=== PATIENT | female | born 1935 | race Asian ===

== ENCOUNTER 2018-08-13 19:38 | Inpatient (IN) | payer OTHER, MEDICAID ==
[~2018-08-13] VITALS: Ht 154.9 cm; Wt 55.6 kg
[2018-08-13 21:22] LABS: BASOPHIL % 0.2 % (0-2); PLATELET COUNT 230 x10^3mcL (130-400); RED CELL DISTRIBUTION WIDTH 14.2 % (11.5-14.5)
[2018-08-13 21:27] LABS: CALCIUM 8.5 mg/dL (8.5-10.1); CHLORIDE SERUM 107 mmol/L (98-107); CREATININE SERUM 1.4 mg/dL (0.6-1.0); GLUCOSE SERUM 95 mg/dL (74-106); POTASSIUM SERUM 3.9 mmol/L (3.5-5.1); SODIUM SERUM 141 mmol/L (136-145)
[2018-08-13] MEDS ORDERED: ENALAPRIL MALE2.5 MG PO (21:29)
[2018-08-13 21:41] LABS: ALBUMIN 3.3 g/dL (3.4-5.0); ALKALINE PHOSPHATASE 45 U/L (46-116); ALT/SGPT 16 U/L (14-59); AST/SGOT 23 U/L (15-37); BILIRUBIN TOTAL 0.4 mg/dL (0.20-1.00); TOTAL PROTEIN, SERUM 7.3 g/dL (6.4-8.2)
[2018-08-13 22:01] VITALS: BP 173/50
[2018-08-13 23:40] LABS: microscopic required? NO
[2018-08-13 23:52] LABS: UA SPECIFIC GRAVITY <=1.005 (1.005-1.035); urine erythrocyte NEGATIVE (NEGATIVE)
[2018-08-14] MEDS ORDERED: LYRICA50 M1 PO (00:20)
[2018-08-14 05:55] VITALS: BP 129/50
[2018-08-14 06:19] LABS: CALCIUM 7.8 mg/dL (8.5-10.1); CARBON DIOXIDE 21.2 mmol/L (21-32); CHLORIDE SERUM 110 mmol/L (98-107); CREATININE SERUM 1.4 mg/dL (0.6-1.0); GLUCOSE SERUM 178 mg/dL (74-106); MAGNESIUM 1.9 mg/dL (1.8-2.4); POTASSIUM SERUM 4.1 mmol/L (3.5-5.1); SODIUM SERUM 139 mmol/L (136-145)
[2018-08-14 06:27] LABS: BASOPHIL % 0.3 % (0-2); PLATELET COUNT 193 x10^3mcL (130-400)
[2018-08-14 09:20] VITALS: BP 152/73
[2018-08-14 18:12] VITALS: BP 149/72
[2018-08-14 21:04] VITALS: BP 137/60
[2018-08-15 04:50] VITALS: BP 131/65
[2018-08-15 09:16] VITALS: BP 134/58
[2018-08-15 18:04] VITALS: BP 139/58
[2018-08-15 19:40] LABS: UA SPECIFIC GRAVITY 1.025 (1.005-1.035); microscopic required? YES; urine erythrocyte NEGATIVE (NEGATIVE)
[2018-08-15 20:06] VITALS: BP 157/57
[2018-08-16 05:44] VITALS: BP 147/54
[2018-08-16 06:35] LABS: CALCIUM 7.8 mg/dL (8.5-10.1); CARBON DIOXIDE 18.6 mmol/L (21-32); CHLORIDE SERUM 109 mmol/L (98-107); CREATININE SERUM 1.1 mg/dL (0.6-1.0); GLUCOSE SERUM 147 mg/dL (74-106); MAGNESIUM 1.7 mg/dL (1.8-2.4); POTASSIUM SERUM 3.6 mmol/L (3.5-5.1); SODIUM SERUM 139 mmol/L (136-145)
[2018-08-16 06:53] LABS: BASOPHIL % 0.3 % (0-2); PLATELET COUNT 148 x10^3mcL (130-400); RED CELL DISTRIBUTION WIDTH 14.4 % (11.5-14.5)
[2018-08-16 09:14] VITALS: BP 129/59
[2018-08-16 15:00] VITALS: BP 119/59
[2018-08-16] MEDS ORDERED: ACETAMINOPHEN-H1 TA1 PO (15:18)
[2018-08-16] MEDS ORDERED: HEP5I SC (15:18)
[2018-08-16] MEDS ORDERED: APR25 PO (15:18)
[2018-08-16] MEDS ORDERED: ENALAPRIL MALE2.5 MG PO (15:21)
[2018-08-16] MEDS ORDERED: ROC1I IV (15:21)
[2018-08-16 16:40] VITALS: BP 132/59
[2018-08-16 20:48] VITALS: BP 129/57
[2018-08-17 05:14] VITALS: BP 127/59
[2018-08-17 07:54] VITALS: BP 131/65
[2018-08-17 12:40] VITALS: BP 141/65
[2018-08-17 16:26] VITALS: BP 163/73
[2018-08-17 18:00] VITALS: BP 130/57
== END 2018-08-17 20:20 | DRG 301 ==
LOC: ED 19:38 → MU 21:16
PROVIDERS: Emergency Medicine; Internal Medicine Pulmonary Disease; Neuromusculoskeletal Medicine, Sports Medicine
PROC: 0SRR0JZ Replacement of Right Hip Joint, Femoral Surface with Synthetic Substitute, Open Approach (ICD-10-PCS; principal; 2018-08-14 14:00)
DX: S72.011A Unspecified intracapsular fracture of right femur, initial encounter for closed fracture (principal); J18.9 Pneumonia, unspecified organism; J98.11 Atelectasis; I10 Essential (primary) hypertension; E78.5 Hyperlipidemia, unspecified; W01.0XXA Fall on same level from slipping, tripping and stumbling without subsequent striking against object, initial encounter; Y92.9 Unspecified place or not applicable
CPT/HCPCS: 94150; 97110-GP; 97116-GP; 97530-GP; C1776; J0690; J0696; J1644; J1885; J2175; J2250; J2270; J2405; J3010; J3475; J3490; J7030; J7042; J7120; Q0092

== ENCOUNTER 2019-02-14 13:38 | Inpatient (IN) | payer OTHER, MEDICAID ==
[~2019-02-14] VITALS: Ht 149.9 cm; Wt 56.4 kg
[~2019-02-14 13:38] MED LIST: ACETAMINOPHEN-H1 TA1 PO; APR25 PO; ENALAPRIL MALE2.5 MG PO; HEP5I SC; LYRICA50 M1 PO; ROC1I IV
[2019-02-14 14:31] LABS: BASOPHIL % 0.2 % (0-2); PLATELET COUNT 305 x10^3mcL (130-400)
[2019-02-14 14:37] LABS: RED CELL DISTRIBUTION WIDTH 16.8 % (11.5-14.5)
[2019-02-14 14:39] LABS: CALCIUM 8.3 mg/dL (8.5-10.1); CARBON DIOXIDE 21.1 mmol/L (21-32); CHLORIDE SERUM 103 mmol/L (98-107); GLUCOSE SERUM 97 mg/dL (74-106); POTASSIUM SERUM 3.8 mmol/L (3.5-5.1); SODIUM SERUM 137 mmol/L (136-145)
[2019-02-14 14:50] LABS: ALKALINE PHOSPHATASE 71 U/L (46-116); ALT/SGPT 21 U/L (14-59); AST/SGOT 43 U/L (15-37); BILIRUBIN TOTAL 0.4 mg/dL (0.20-1.00); TOTAL PROTEIN, SERUM 7.5 g/dL (6.4-8.2)
[2019-02-14 14:53] LABS: ALBUMIN 2.9 g/dL (3.4-5.0)
[2019-02-14] MEDS ORDERED: AMPICILLIN500 MG PO (15:18)
[2019-02-14 16:38] LABS: microscopic required? YES; urine erythrocyte 2+ (NEGATIVE)
[2019-02-14 17:33] VITALS: BP 151/62
[2019-02-14 17:37] VITALS: Ht 149.9 cm; Wt 56.4 kg
[2019-02-14 20:59] VITALS: BP 131/56
[2019-02-14 23:59] VITALS: BP 131/56
[2019-02-15 05:03] VITALS: BP 157/82
[2019-02-15 06:50] LABS: ALKALINE PHOSPHATASE 81 U/L (46-116); ALT/SGPT 22 U/L (14-59); AST/SGOT 39 U/L (15-37); BILIRUBIN TOTAL 0.34 mg/dL (0.20-1.00); CALCIUM 7.9 mg/dL (8.5-10.1); CHLORIDE SERUM 102 mmol/L (98-107); GLUCOSE SERUM 105 mg/dL (74-106); PHOSPHOROUS 2.1 mg/dL (2.5-4.9); POTASSIUM SERUM 3.6 mmol/L (3.5-5.1); SODIUM SERUM 136 mmol/L (136-145); TOTAL PROTEIN, SERUM 7.2 g/dL (6.4-8.2)
[2019-02-15 06:57] LABS: ALBUMIN 2.8 g/dL (3.4-5.0)
[2019-02-15 08:48] VITALS: BP 147/61
[2019-02-15 13:02] VITALS: BP 141/54
[2019-02-15 18:54] VITALS: BP 137/59
[2019-02-15 20:38] VITALS: BP 134/54
[2019-02-16 04:58] VITALS: BP 119/62
[2019-02-16 06:18] LABS: BASOPHIL % 0.2 % (0-2); PLATELET COUNT 297 x10^3mcL (130-400)
[2019-02-16 07:04] LABS: RED CELL DISTRIBUTION WIDTH 17.1 % (11.5-14.5)
[2019-02-16 07:06] LABS: ALKALINE PHOSPHATASE 77 U/L (46-116); ALT/SGPT 21 U/L (14-59); AST/SGOT 35 U/L (15-37); BILIRUBIN TOTAL 0.21 mg/dL (0.20-1.00); CALCIUM 7.7 mg/dL (8.5-10.1); CARBON DIOXIDE 23.6 mmol/L (21-32); CHLORIDE SERUM 105 mmol/L (98-107); CREATININE SERUM 0.9 mg/dL (0.6-1.0); GLUCOSE SERUM 84 mg/dL (74-106); PHOSPHOROUS 2.7 mg/dL (2.5-4.9); POTASSIUM SERUM 3.4 mmol/L (3.5-5.1); SODIUM SERUM 139 mmol/L (136-145); TOTAL PROTEIN, SERUM 6.8 g/dL (6.4-8.2)
[2019-02-16 07:07] LABS: ALBUMIN 2.4 g/dL (3.4-5.0)
[2019-02-16 08:40] VITALS: BP 111/62
[2019-02-16 12:30] VITALS: BP 117/56
[2019-02-16 17:51] VITALS: BP 120/50
[2019-02-16 20:12] VITALS: BP 114/58
[2019-02-17] VITALS (8 sets, daily range): BP systolic 112–145; BP diastolic 43–77
[2019-02-17 07:28] LABS: ALKALINE PHOSPHATASE 95 U/L (46-116); ALT/SGPT 22 U/L (14-59); AST/SGOT 31 U/L (15-37); BILIRUBIN TOTAL 0.24 mg/dL (0.20-1.00); CALCIUM 7.9 mg/dL (8.5-10.1); CARBON DIOXIDE 22.3 mmol/L (21-32); CHLORIDE SERUM 102 mmol/L (98-107); CREATININE SERUM 0.9 mg/dL (0.6-1.0); GLUCOSE SERUM 94 mg/dL (74-106); POTASSIUM SERUM 3.8 mmol/L (3.5-5.1); SODIUM SERUM 136 mmol/L (136-145); TOTAL PROTEIN, SERUM 7.8 g/dL (6.4-8.2)
[2019-02-17 07:30] LABS: ALBUMIN 2.8 g/dL (3.4-5.0)
[2019-02-17] MEDS ORDERED: LEVAQUIN750 MG PO (08:40)
[2019-02-17] MEDS ORDERED: ROBL PO (08:41)
[2019-02-18 05:45] VITALS: BP 127/55
[2019-02-18 07:06] LABS: PLATELET COUNT 335 x10^3mcL (130-400)
[2019-02-18 07:13] LABS: ALKALINE PHOSPHATASE 119 U/L (46-116); ALT/SGPT 20 U/L (14-59); AST/SGOT 29 U/L (15-37); BILIRUBIN TOTAL 0.5 mg/dL (0.20-1.00); CALCIUM 7.5 mg/dL (8.5-10.1); CARBON DIOXIDE 21.1 mmol/L (21-32); CHLORIDE SERUM 99 mmol/L (98-107); CREATININE SERUM 1.2 mg/dL (0.6-1.0); GLUCOSE SERUM 101 mg/dL (74-106); SODIUM SERUM 132 mmol/L (136-145); TOTAL PROTEIN, SERUM 7.2 g/dL (6.4-8.2)
[2019-02-18 07:15] LABS: ALBUMIN 2.3 g/dL (3.4-5.0)
[2019-02-18 08:12] LABS: RED CELL DISTRIBUTION WIDTH 17.3 % (11.5-14.5)
[2019-02-18 08:39] VITALS: BP 135/57
[2019-02-18 13:07] LABS: BAND NEUTROPHIL 6 % (0-10); BASOPHIL 0 % (0-2); MONOCYTE 2 % (0-7); SEGMENTED NEUTROPHILS 86 % (37-75)
[2019-02-18 13:08] LABS: PLATELET MORPHOLOGY PLATELETS INCREASED; rbc morphology (normal/abnorm) ABNORMAL (NORMAL)
[2019-02-18 16:39] VITALS: BP 129/53
[2019-02-18 21:22] VITALS: BP 118/55
[2019-02-18 23:30] VITALS: BP 118/55
[2019-02-19] VITALS (10 sets, daily range): BP systolic 83–119; BP diastolic 47–66
[2019-02-19 05:16] LABS: CHLORIDE SERUM 101 mmol/L (98-107); CREATININE SERUM 1.8 mg/dL (0.6-1.0); GLUCOSE SERUM 148 mg/dL (74-106); POTASSIUM SERUM 4.6 mmol/L (3.5-5.1); SODIUM SERUM 133 mmol/L (136-145)
[2019-02-19 05:24] LABS: PLATELET COUNT 331 x10^3mcL (130-400)
[2019-02-19 05:28] LABS: BASOPHIL % 0 % (0-2); RED CELL DISTRIBUTION WIDTH 17.4 % (11.5-14.5)
[2019-02-19 13:06] LABS: UA SPECIFIC GRAVITY >=1.030 (1.005-1.035); microscopic required? YES; urine erythrocyte 2+ (NEGATIVE)
[2019-02-20 03:21] VITALS: BP 108/59
[2019-02-20 05:08] LABS: CARBON DIOXIDE 20.4 mmol/L (21-32); CHLORIDE SERUM 107 mmol/L (98-107); CREATININE SERUM 1.4 mg/dL (0.6-1.0); GLUCOSE SERUM 97 mg/dL (74-106); MAGNESIUM 2.6 mg/dL (1.8-2.4); SODIUM SERUM 138 mmol/L (136-145)
[2019-02-20 05:18] LABS: BASOPHIL % 0 % (0-2); PLATELET COUNT 329 x10^3mcL (130-400); RED CELL DISTRIBUTION WIDTH 17.5 % (11.5-14.5)
[2019-02-20 07:48] VITALS: BP 108/58
[2019-02-20 12:30] VITALS: BP 130/65
[2019-02-20 16:13] VITALS: BP 132/60
[2019-02-20 20:33] VITALS: BP 141/68
[2019-02-21 05:36] VITALS: BP 159/74
[2019-02-21 06:40] VITALS: BP 151/74
[2019-02-21 07:19] LABS: BASOPHIL % 0.1 % (0-2)
[2019-02-21 07:21] LABS: PLATELET COUNT 415 x10^3mcL (130-400); RED CELL DISTRIBUTION WIDTH 17.2 % (11.5-14.5)
[2019-02-21 07:41] LABS: CALCIUM 7.8 mg/dL (8.5-10.1); CARBON DIOXIDE 19.8 mmol/L (21-32); CHLORIDE SERUM 109 mmol/L (98-107); CREATININE SERUM 1.1 mg/dL (0.6-1.0); GLUCOSE SERUM 71 mg/dL (74-106); POTASSIUM SERUM 3.8 mmol/L (3.5-5.1); SODIUM SERUM 140 mmol/L (136-145)
[2019-02-21 10:36] VITALS: BP 157/65
[2019-02-21 14:00] VITALS: BP 152/74
[2019-02-21 18:00] VITALS: BP 148/68
[2019-02-21 20:51] VITALS: BP 137/65
[2019-02-22 05:34] VITALS: BP 124/65
[2019-02-22 07:31] LABS: CALCIUM 8.1 mg/dL (8.5-10.1); CARBON DIOXIDE 19.6 mmol/L (21-32); CHLORIDE SERUM 110 mmol/L (98-107); GLUCOSE SERUM 80 mg/dL (74-106); POTASSIUM SERUM 4.1 mmol/L (3.5-5.1); SODIUM SERUM 140 mmol/L (136-145)
[2019-02-22 08:14] LABS: BASOPHIL % 0.2 % (0-2)
[2019-02-22 08:32] LABS: RED CELL DISTRIBUTION WIDTH 17.5 % (11.5-14.5)
[2019-02-22 08:33] LABS: PLATELET COUNT 466 x10^3mcL (130-400)
[2019-02-22 09:44] VITALS: BP 142/69
[2019-02-22 13:46] VITALS: BP 158/77
[2019-02-22 16:29] VITALS: BP 158/77
[2019-02-22 17:25] VITALS: BP 133/77
[2019-02-22 22:02] VITALS: BP 159/74
[2019-02-23 06:37] VITALS: BP 153/70
[2019-02-23 07:13] LABS: ALKALINE PHOSPHATASE 164 U/L (46-116); ALT/SGPT 17 U/L (14-59); AST/SGOT 23 U/L (15-37); BILIRUBIN TOTAL 0.67 mg/dL (0.20-1.00); CALCIUM 8.8 mg/dL (8.5-10.1); CARBON DIOXIDE 19.8 mmol/L (21-32); CHLORIDE SERUM 105 mmol/L (98-107); GLUCOSE SERUM 96 mg/dL (74-106); MAGNESIUM 1.7 mg/dL (1.8-2.4); PHOSPHOROUS 3.8 mg/dL (2.5-4.9); POTASSIUM SERUM 3.8 mmol/L (3.5-5.1); SODIUM SERUM 137 mmol/L (136-145); TOTAL PROTEIN, SERUM 6.4 g/dL (6.4-8.2)
[2019-02-23 07:14] LABS: ALBUMIN 1.9 g/dL (3.4-5.0)
[2019-02-23 07:18] LABS: BASOPHIL % 0.1 % (0-2)
[2019-02-23 08:15] LABS: RED CELL DISTRIBUTION WIDTH 17.3 % (11.5-14.5)
[2019-02-23 08:17] LABS: PLATELET COUNT 468 x10^3mcL (130-400)
[2019-02-23 10:01] VITALS: BP 141/69
[2019-02-23 12:12] VITALS: BP 150/63
[2019-02-23 17:59] VITALS: BP 132/68
[2019-02-23 21:00] VITALS: BP 158/77
[2019-02-24 05:34] VITALS: BP 149/70
[2019-02-24 09:00] VITALS: BP 114/61
[2019-02-24 09:37] LABS: BASOPHIL % 0.1 % (0-2)
[2019-02-24 09:42] LABS: PLATELET COUNT 577 x10^3mcL (130-400); RED CELL DISTRIBUTION WIDTH 17.7 % (11.5-14.5)
[2019-02-24 13:00] VITALS: BP 121/54
[2019-02-24 13:54] VITALS: BP 121/54
== END 2019-02-24 17:12 | disposition home or self-care (01) | DRG 853 ==
LOC: ED 13:38 → DU 16:29 → MU 16:29 → IC 16:29 → DU 17:16 → MU 02-18 04:53 → DU 02-18 04:55 → MU 02-18 04:56 → IC 02-18 21:13 → DU 02-20 16:04 → IC 02-20 18:03 → DU 02-20 18:16
PROVIDERS: Emergency Medicine; Internal Medicine; Internal Medicine Pulmonary Disease; Surgery; ADMIT Internal Medicine
PROC: 0WQF4ZZ Repair Abdominal Wall, Percutaneous Endoscopic Approach (ICD-10-PCS; 2019-02-18)
PROC: 0DTJ4ZZ Resection of Appendix, Percutaneous Endoscopic Approach (ICD-10-PCS; principal; 2019-02-18 19:30)
DX: A41.9 Sepsis, unspecified organism (principal); K35.32 Acute appendicitis with perforation, localized peritonitis, and gangrene, without abscess; J18.9 Pneumonia, unspecified organism; J44.0 Chronic obstructive pulmonary disease with (acute) lower respiratory infection; N17.9 Acute kidney failure, unspecified; E87.1 Hypo-osmolality and hyponatremia; K42.9 Umbilical hernia without obstruction or gangrene; I10 Essential (primary) hypertension; E78.00 Pure hypercholesterolemia, unspecified; J20.9 Acute bronchitis, unspecified; Z68.24 Body mass index [BMI] 24.0-24.9, adult; Z96.641 Presence of right artificial hip joint
CPT/HCPCS: 83880; 87046; 87046-59; 87804; 94150; 97110-GP; 97116-GP; 97530-GP; J0330; J0456; J0694; J0696; J1644; J1940; J1956; J2060; J2175; J2270; J2405; J2543; J2704; J2710; J3010; J3370; J3475; J3490; J7030; J7042; J7120; J7613; J7620; J7644; Q0092; Q9966

== ENCOUNTER 2019-05-22 09:32 | Inpatient (IN) | payer OTHER, MEDICAID ==
[~2019-05-22] VITALS: Ht 157.5 cm; Wt 56.7 kg
[~2019-05-22 09:32] MED LIST changes: +AMPICILLIN500 MG PO; +LEVAQUIN750 MG PO; +ROBL PO
[2019-05-22 09:56] VITALS: Ht 157.5 cm; Wt 56.7 kg
--- NOTE | 2019-05-22 10:03 | NUR ---
PT BIB DAUGHTER FOR GEN ABD PAIN AND BLOOD IN STOOL, STS HAPPENS FREQUENTLY WITH HX OF HEMMORHOIDS. PT REPORTS DIARRHEA, NO VOMITTING. DAUGHTER AT BEDSIDE. PT SKIN COLOR WNL.
--- NOTE | 2019-05-22 10:13 | NUR ---
MSE BY DR URIOSTEGUI. CHAPPERONED RECTAL EXAM, PT'S DAUGHTER AT BEDSIDE.
[2019-05-22 10:36] LABS: PLATELET COUNT 343 x10^3mcL (130-400)
[2019-05-22 10:43] LABS: CALCIUM 8.7 mg/dL (8.5-10.1); CARBON DIOXIDE 19.2 mmol/L (21-32); CHLORIDE SERUM 108 mmol/L (98-107); CREATININE SERUM 1.3 mg/dL (0.6-1.0); GLUCOSE SERUM 159 mg/dL (74-106); POTASSIUM SERUM 3.9 mmol/L (3.5-5.1); SODIUM SERUM 140 mmol/L (136-145)
[2019-05-22 10:47] LABS: ALKALINE PHOSPHATASE 41 U/L (46-116); ALT/SGPT 13 U/L (14-59); AST/SGOT 18 U/L (15-37); BILIRUBIN TOTAL 0.6 mg/dL (0.20-1.00); LIPASE 124 IU/L (73-393); TOTAL PROTEIN, SERUM 7.2 g/dL (6.4-8.2)
[2019-05-22 10:48] LABS: ALBUMIN 2.9 g/dL (3.4-5.0)
[2019-05-22 11:24] LABS: BAND NEUTROPHIL 19 % (0-10)
[2019-05-22 11:25] LABS: MONOCYTE 5 % (0-7); rbc morphology (normal/abnorm) ABNORMAL (NORMAL)
[2019-05-22 11:26] LABS: ovalocyte/elliptocyte 1+
[2019-05-22 11:27] LABS: METAMYELOCTE 1 % (0-2); PLATELET MORPHOLOGY PLATELETS NORMAL; SEGMENTED NEUTROPHILS 59 % (37-75)
--- NOTE | 2019-05-22 11:29 | NUR ---
TAKEN TO RADIOLOGY FOR CT
--- NOTE | 2019-05-22 12:40 | NUR ---
STARTED ON IV ATB
--- NOTE | 2019-05-22 13:04 | NUR ---
PT ADMIT TO TELE ROOM 218B GAVE REPORT TO LESIA
--- NOTE | 2019-05-22 14:28 | NUR ---
RECEIVED PT VIA Teal[facility]ERNEY FROM E/D, ACCOMPANIED BY RN, TRANSPORTER, AND PT'S SON, SARBJIT WALL. PT A/A/O X 4, CALM, COOPERATIVE; SPEAKS GREEK ONLY, ROHIT TESFAYE BY BEDSIDE FOR TRANSLATION . PT W/ GENERALIZED WEAKNESS, BUT ABLE TO AMBULATE W/ 1-PERSON ASSIST W/ SLOW, STEADY GAIT. ON TELE # 15, NSR, HR 98, DENIES CHEST PAIN OR DISCOMFORT AT THIS TIME. NO ACUTE RESPIRATORY DISTRESS NOTED. ABD SOFT, ROUND, TENDERNESS UPON PALPATION (ACHING ABDOMINAL PAIN 5/10 UPON PALPATION), NORMOACTIVE BOWEL SOUNDS X 4 QUADS, LAST BM 05/22/19, BLOODY DIARRHEA (PT STATED SHE'S HAD BLOODY DIARRHEA FOR YEARS); WEARS UPPER AND LOWER PARTIAL DENTURES. IV SITE RAC 22G, CDI. ORIENTED PT AND SON TO ROOM, BED CONTROLS, CALL LIGHT SYSTEM. SIDE RAILS UP X 2, BED IN LOW POSITION. WILL ENDORSE TO ROHIT TESFAYE.
[2019-05-22 15:30] VITALS: BP 148/60
--- NOTE | 2019-05-22 16:03 | NUR ---
PT. IS BEING SEEN BY DR. GARCIA
--- NOTE | 2019-05-22 17:13 | NUR ---
TEMP.= 100.4. TYLENOL 650MG PO GIVEN.
[2019-05-22 17:25] VITALS: BP 156/63
--- NOTE | 2019-05-22 19:15 | NUR ---
REPORT RECEIVED FROM DAY SHIFT RN. PATIENT WAS SEEN AND RESTING COMFORTABLY IN BED. NO DISTRESS NOTED. BREATHING EVEN AND UNLABORED ON ROOM AIR. NO SOB OR RESP DISTRESS NOTED. DENIES CHEST PAIN/PRESSURE. TELE#15 NSR @83. IV TO THE RAC, 22G, INFUSING WELL. PATENT AND INTACT. NO REDNESS OR SWELLING NOTED. PATIENT REPORTS HAVING BLOODY DIARRHEA. PATIENT HAS NOT HAD A BM YET SO BM CANOT BE ASSESSED AT THIS TIME. COMFORT AND SAFETY MEASURES IN PLACE. BED IS LOCKED AND IN THE LOWEST POSITION. SIDE RAILS UP X2. CALL LIGHT IS WITHIN REACH. WILL CONTINUE TO MONITOR.
--- NOTE | 2019-05-22 20:50 | NUR ---
PATIENT IS C/O NERVE PAIN IN HER FEET. TOLD ME SHE TAKES NEURONTIN 300MG ONCE AT NIGHT AND GAVE ME HER HOME MED PRESCRIPTION BOTTLE. ADDED THIS MED TO HER MED REC. EDUCATED PATIENT TO NOT TAKE HOME MEDS AND TO ONLT TAKE MEDS WE ADMINISTERED TO HER IN THE HOSPITAL. PATIENT VERBALIZED UNDERSTANDING. WILL CONTINUE TO MONITOR.
[2019-05-22] MEDS ORDERED: NEU300 PO (20:56)
[2019-05-22 22:49] VITALS: BP 157/59
--- NOTE | 2019-05-23 01:10 | NUR ---
PATIENT IS RESTING COMFORTABLY IN BED WITH EYES CLOSED. NO DISTRESS NOTED. BREATHING EVEN ON ROOM AIR. NO S/S OF PAIN. FAMILY AT BEDSIDE. IVF INFUSING WELL. CALL LIGHT IS WITHIN REACH. SAFETY MEASURES IN PLACE. WILL CONTINUE TO MONITOR.
--- NOTE | 2019-05-23 05:31 | NUR ---
TEMP 100.4, ADMINISTERED PRN TYLENOL PRESCRIBED. WILL CONTINUE TO MONITOR PATIENT. NO DISTRESS NOTED. BREATHING EVEN. CALL LIGHT IS WITHIN REACH.
[2019-05-23 06:08] LABS: BASOPHIL % 0.3 % (0-2); PLATELET COUNT 315 x10^3mcL (130-400)
[2019-05-23 06:12] VITALS: BP 146/71
--- NOTE | 2019-05-23 06:15 | NUR ---
PATIENT SLEPT IN LONG INTERVALS THROUGHOUT THE NIGHT WITH FAMILY AT BEDSIDE. NO DISTRESS NOTED. BREATHING EVEN ON ROOM AIR. NO SOB OR RESP DISTRESS NOTED. DENIES PAIN AT THIS TIME. DENIES CHEST PAIN. IV TO THE RAC INFUSING WELL. PATENT AND INTACT. NO REDNESS OR SWELLING NOTE. PATIENT DID NOT HAVE A BM. SAFETY MEASURES IN PLACE. CALL LIGHT IS WITHIN REACH. WILL ENDORSE CARE TO DAY SHIFT RN.
[2019-05-23 06:28] LABS: CALCIUM 8.7 mg/dL (8.5-10.1); CHLORIDE SERUM 110 mmol/L (98-107); GLUCOSE SERUM 100 mg/dL (74-106); MAGNESIUM 2.2 mg/dL (1.8-2.4); POTASSIUM SERUM 3.9 mmol/L (3.5-5.1); SODIUM SERUM 139 mmol/L (136-145)
[2019-05-23 06:59] LABS: RED CELL DISTRIBUTION WIDTH 24.9 % (11.5-14.5)
[2019-05-23 07:01] LABS: rbc morphology (normal/abnorm) ABNORMAL (NORMAL)
--- NOTE | 2019-05-23 07:30 | NUR ---
RECEIVED PT FROM SLATE CUTTER RN. Davidson/ELY. TELE#15. RESPIRATIONS EQUAL AND UNLABORED ON RA. DENIES SOB. DENIES CHEST PAIN/PRESSURE. PT AMBULATING TO BATHROOM, STEADY GAIT, TOLERATED WELL. PT HAS NOT HAD BLOODY STOOL SINCE ADMISSION. PT AWARE OF STOOL SAMPLE NEEDED. PT DENIES ANY PAIN AT THIS TIME. IV TO RAC PATENT AND INFUSING. NO REDNESS OR SWELLING NOTED. FAMILY AT BEDSIDE. WILL CONTINUE TO MONITOR. CALL LIGHT IN REACH. BED IN LOWEST POSITION.
[2019-05-23 08:11] VITALS: BP 114/54
--- NOTE | 2019-05-23 08:55 | NUR ---
PT AMBULATING IN HALLWAYS TOLERATING WELL.
--- NOTE | 2019-05-23 09:14 | NUR ---
PT SITTING UP IN BED. NO ACUTE RESP DISTRESS NOTED ON RA. PT C/O PAIN TO ABDOMEN 03/21. PT DOES NOT WANT ANY PAIN MEDICATION. PT STATES SHE HAS BEEN ABLE TO VOID PER BRP. GIVEN PO MEDS. TOLERATED WELL. IV ANTIBIOTIC INFUSING ORDERED. NO REDNESS OR SWELLING NOTED. WILL CONTINUE TO MONITOR. CALL LIGHT IN REACH. BED IN LOWEST POSITION. FAMILY AT BEDSIDE.
--- NOTE | 2019-05-23 12:28 | NUR ---
PT STATES HE STOMACH IS STILL HURTING. PT STATES SHE FEELS LIKE SHE HAS BURNING SENSATION IN HER STOMACH. WILL CONTINUE TO MONITOR. CALL LIGHT IN REACH. BED IN LOWEST POSITION.
[2019-05-23 12:54] VITALS: BP 136/57
--- NOTE | 2019-05-23 15:41 | NUR ---
PT IN BED RESTING. PT STATES PAIN HAS IMPROVED SINCE RECEIVING MORPHINE. PT STILL HAVE HEARTBURN. MEDICATED PER EMAR. TOLERATED WELL. IV ANTIBIOTICS INFUSING ORDERED. WILL CONTINUE TO MONITOR. CALL LIGHT IN REACH. BED IN LOWEST POSITION.
[2019-05-23 16:00] VITALS: BP 120/59
--- NOTE | 2019-05-23 18:22 | NUR ---
PT SITTING UP IN CHAIR. FAMILY AT BEDSIDE. NO ACUTE RESP DISTRESS NOTED ON RA. TELE#15. PT C/O ABDOMINAL PAIN TO RLQ BURNING 06/21. MEDICATED PER EMAR. IV TO RAC FLUSHED WELL. NO REDNESS OR SWELLING NOTED. IV FLUIDS INFUSING ORDERED. PT REMINDED TO USE HAT WHEN SHE HAS A BM. PT VERBALIZED UNDERSTANDING. WILL ENDORSE TO APIARIST RN. CALL LIGHT IN REACH. BED IN LOWEST POSITION.
--- NOTE | 2019-05-23 19:30 | NUR ---
RECEIVED PT FROM DAY SHIFT RN. PT AWAKE AND ALERT. BREATHING EVEN AND UNALBORED ON RA WITH NO SOB NOTED. TELE #15 SR HR 98. PT DENIES CHEST PAIN OR PRESSURE. GENERALIZED WEAKNESS NOTED. ABD SOFT AND ROUND, ACTIVE BOWEL SOUNDS, DENIES ABD PAIN/N/V AT THIS TIME. IV RAC PATENT, INFUSING WELL WITH NO SIGNS OF INFILTRATION NOTED. DAUGHTER AT BEDSIDE TO HELP WITH LANGUAGE BARRIER. NO SIGNS OF ACUTE DISTRESS NOTED. CALL BUTTON WITHIN REACH. SAFETY PRECAUTIONS IN PLACE. WILL CONTINUE TO MONITOR.
[2019-05-23 20:00] VITALS: BP 146/49
--- NOTE | 2019-05-24 00:35 | NUR ---
PT RESTING, BREATHING EVEN AND UNLABORED. NO SIGNS OF DISTRESS NOTED. IV PATENT, INFUSING WELL. NO SIGNS OF DISTRESS. CALL BUTTON WITHIN REACH. SAFETY PRECAUTIONS IN PLACE. WILL CONTINUE TO MONITOR.
--- NOTE | 2019-05-24 03:19 | NUR ---
ROUNDS MADE. PT RESTING. BREATHING EVEN AND UNLABORED. NO SIGNS OF DISTRESS NOTED. CALL BUTTON WITHIN REACH. SAFETY PRECAUTIONS IN PLACE. FAMILY AT BEDSIDE. WILL CONTINUE TO MONITOR.
--- NOTE | 2019-05-24 06:08 | NUR ---
PT REPORTED HAVING ABD PAIN, MEDICATED PER EMAR. CALL BUTTON WITHIN REACH. SAFETY PRECAUTIONS IN PLACE. WILL CONTINUE TO MONITOR.
--- NOTE | 2019-05-24 06:11 | NUR ---
PT SLEPT MOST OF THE NIGHT WITH NO SIGNS OF DISTRESS NOTED. BREATHING EVEN AND UNLABORED. IV PATENT, INFUSING WELL WITH NO SIGNS OF INFILTRATION NOTED. MEDICATED PER EMAR. PT AMBULATORY WITH BRP. PT DID NOT HAVE A BM. NO SIGNS OF ACUTE DISTRESS NOTED. CALL BUTTON WITHIN REACH. SAFETY PRECAUTIONS IN PLACE. FAMILY MEMBER AT BEDSIDE. WILL CONTINUE TO MONITOR AND ENDORSE CARE TO DAY SHIFT RN.
[2019-05-24 06:26] VITALS: BP 143/66
[2019-05-24 06:53] LABS: CALCIUM 8.5 mg/dL (8.5-10.1); CARBON DIOXIDE 15.9 mmol/L (21-32); CHLORIDE SERUM 108 mmol/L (98-107); CREATININE SERUM 1.1 mg/dL (0.6-1.0); GLUCOSE SERUM 93 mg/dL (74-106); MAGNESIUM 2.3 mg/dL (1.8-2.4); POTASSIUM SERUM 3.8 mmol/L (3.5-5.1); SODIUM SERUM 141 mmol/L (136-145)
--- NOTE | 2019-05-24 07:27 | NUR ---
PT RESTING, BREATHING EVEN AND UNLABORED WITH NO SIGNS OF DISTRESS NOTED. ENDORSED CARE TO DAY SHIFT RN, ALL QUESTIONS ADDRESSED.
--- NOTE | 2019-05-24 07:50 | NUR ---
RECEIVED PT FROM PARAPROFESSIONAL EDUCATION ASSISTANT RN. Davidson/ELY. TELE#15. DENIES CHEST PAIN/PRESSURE. RESPIRATIONS EQUAL AND UNLABORED ON RA. DENIES SOB. PT STATE SHE IS STILL HAVING ABDOMINAL PAIN TO RLQ, PT STATES PAIN MEDICATION LAST NIGHT HELPED HER SLEEP LAST NIGHT. IV TO RAC PATENT AND INFUSING. NO REDNESS OR SWELLING NOTED. FAMILY AT BEDSIDE. WILL CONTINUE TO MONITOR. CALL LIGHT IN REACH. BED IN LOWEST POSITION.
[2019-05-24 09:03] VITALS: BP 120/61
--- NOTE | 2019-05-24 09:52 | NUR ---
PT SITTING UP IN CHAIR AT BEDSIDE. NO ACUTE RESP DISTRESS NOTED ON RA. PT C/O RLQ ABDOMINAL PAIN 9/10 BURNING. MEDICATED PER EMAR. GIVEN PO MEDS. TOLERATED WELL. IV PATENT AND INFUSING. NO REDNESS OR SWELLING NOTED. IV ANTIBIOTICS INFUSING ORDERED. WILL CONTINUE TO MONITOR. CALL LIGHT IN REACH. BED IN LOWEST POSITION.
[2019-05-24 10:01] LABS: BASOPHIL % 0.3 % (0-2); PLATELET COUNT 352 x10^3mcL (130-400)
[2019-05-24 13:05] VITALS: BP 153/69
--- NOTE | 2019-05-24 14:21 | NUR ---
PT SITTING UP AT BEDSIDE. FAMILY AT BEDSIDE. PT C/O OF ABDOMINAL PAIN TO RLQ 5/10 BURNING. PT ASKING TO HAVE TYLENOL. MEDICATED PER EMAR. IV ANTIBIOTICS INFUSING ORDERED. NO REDNESS OR SWELLING NOTED. WILL CONTINUE TO MONITOR. CALL LIGHT IN REACH. BED IN LOWEST POSITION.
[2019-05-24 16:18] VITALS: BP 128/62
--- NOTE | 2019-05-24 16:58 | NUR ---
PT C/O IV LEAKING TO RAC. IV TO RAC REMOVED CATHETER INTACT. NO REDNESS OR SWELLING NOTED. IV TO LFA 22 G STARTED.
--- NOTE | 2019-05-24 18:40 | NUR ---
PT SITTING UP AT BEDSIDE. FAMILY AT BEDSIDE. NO ACUTE RESP DISTESS NOTED ON RA. PT STATES SHE STILL HAVING RLQ ABDOMINAL PAIN 01/19. PT STATES PAIN IS TOLERABLE AT THIS TIME. IV TO LFA PATENT AND INFUSING. NO REDNESS OR SWELLING NOTED. PT ATE SMALL AMOUNTS OF CLEAR LIQUIDS. DENIES N/V AT THIS TIME. WILL ENDORSE TO PEANUT CLEANER RN. CALL LIGHT IN REACH. BED IN LOWEST POSITION.
--- NOTE | 2019-05-24 19:30 | NUR ---
RECEIVED PT FROM DAY SHIFT RN. PT AWAKE AND ALERT. BREATHING EVEN AND UNALBORED ON RA WITH NO SOB NOTED. TELE #15 SR HR 99. PT DENIES CHEST PAIN OR PRESSURE. GENERALIZED WEAKNESS NOTED. ABD SOFT AND ROUND, ACTIVE BOWEL SOUNDS, DENIES ABD PAIN/N/V AT THIS TIME. IV LFA PATENT, INFUSING WELL WITH NO SIGNS OF INFILTRATION NOTED. DAUGHTER AT BEDSIDE TO HELP WITH LANGUAGE BARRIER. NO SIGNS OF ACUTE DISTRESS NOTED. CALL BUTTON WITHIN REACH. SAFETY PRECAUTIONS IN PLACE. WILL CONTINUE TO MONITOR.
--- NOTE | 2019-05-24 20:14 | NUR ---
PT REPORTS HAVING ABD PAIN, REQUESTING FOR TYLENOL. MEDICATED PER EMAR. WILL CONTINUE TO MONITOR.
[2019-05-24 20:36] VITALS: BP 127/56
--- NOTE | 2019-05-25 01:22 | NUR ---
ASSISTED PT TO BATHROOM. PT BACK IN BED WITH NO ACUTE DISTRESS NOTED. IV PATENT, INFUSING WELL. CALL BUTTON WITHIN REACH. SAFETY PRECAUTIONS IN PLACE. WILL CONTINUE TO MONITOR.
--- NOTE | 2019-05-25 04:30 | NUR ---
PT STATES SHE IS NOT USED TO HOSPITAL FOOD AND THAT IS WHY SHE FEELS ABD DISCOMFORT/BLOATED. PER PT ALSO DENIES HAVING BLOODY STOOL.
[2019-05-25 05:41] VITALS: BP 142/59
[2019-05-25 06:35] LABS: ALKALINE PHOSPHATASE 50 U/L (46-116); AST/SGOT 9 U/L (15-37); BILIRUBIN TOTAL 0.54 mg/dL (0.20-1.00); CALCIUM 8.2 mg/dL (8.5-10.1); CARBON DIOXIDE 17.3 mmol/L (21-32); CHLORIDE SERUM 112 mmol/L (98-107); GLUCOSE SERUM 94 mg/dL (74-106); MAGNESIUM 2.1 mg/dL (1.8-2.4); POTASSIUM SERUM 3.5 mmol/L (3.5-5.1); SODIUM SERUM 143 mmol/L (136-145); TOTAL PROTEIN, SERUM 6.5 g/dL (6.4-8.2)
[2019-05-25 06:43] LABS: ALBUMIN 2.4 g/dL (3.4-5.0)
[2019-05-25 06:49] LABS: BASOPHIL % 0.2 % (0-2); PLATELET COUNT 354 x10^3mcL (130-400)
[2019-05-25 06:51] LABS: ALT/SGPT 5 U/L (14-59)
--- NOTE | 2019-05-25 07:22 | NUR ---
PT RESTING. NO SIGNS OF DISTRESS NOTED. ENDORSED CARE TO DAY SHIFT RN, ALL QUESTIONS ADDRESSED.
--- NOTE | 2019-05-25 07:38 | NUR ---
PT ENDORSE TO ME THIS MORNING, LAYING IN BED RESTING. AA/OX4. BREATHING EVEN AND UNLABORED ON RA, NO ACUTE RESP DISTRESS OR SOB NOTED. BURUNDIAN SPK. TELE 15 SR NOTED, HR 90 NOTED.DENIES ANY CP OR PRESSURE. BOWEL SOUNDS ACTIVE IN ALL FOUR QUADS, LAST BM 05/23, PASSING GAS PER PT. AMB, GEN WEAKNESS, USES WALKER AT HOME. IV TO THE RAC INTACT AND PATENT INFUSING AT 80ML/HR. CALL LIGHT IN REACH, BED IN LOW POSITION. WILL CONTINE TO MONITOR.
[2019-05-25 07:50] VITALS: BP 150/71
--- NOTE | 2019-05-25 08:42 | NUR ---
PT C/O OF ABD PAIN 04/21, MEDICATED PER EMAR. WILL CONTINUE TO MONITOR. DAUGHTER AT BEDSIDE.
--- NOTE | 2019-05-25 10:00 | NUR ---
PER DR. ELANA BURRELL TO HAVE DAUGHTER BRING HER FOOD FROM HOME. WILL CONTINUE TO MONITOR.
[2019-05-25 11:29] VITALS: BP 128/56
--- NOTE | 2019-05-25 14:20 | NUR ---
NEW IV TO THE R HAND/WIRST 22G INTACT AND PATENT. TOLERATED WELL. WILL CONTINUE TO MONITOR.
[2019-05-25 15:57] VITALS: BP 142/73
--- NOTE | 2019-05-25 18:42 | NUR ---
NO ACUTE CHANGES AT THIS TIME. NO ACUTE RESP DISTRESS OR SOB NOTED. DENIES ANY ABD DISCOMFORT AT THIS TIME. FAMILY AT BEDSIDE. IV TO THE R HAND/ WRIST INTACT AND PATENT/ HEPLOCKED. WILL ENDORSE TO INCOMING RN.
--- NOTE | 2019-05-25 19:33 | NUR ---
RECEIVED PT FROM DAY SHIFT RN. PT AWAKE AND ALERT. BREATHING EVEN AND UNALBORED ON RA WITH NO SOB NOTED. TELE #15 ST HR 112. PT DENIES CHEST PAIN OR PRESSURE. GENERALIZED WEAKNESS NOTED. ABD SOFT AND ROUND, ACTIVE BOWEL SOUNDS, DENIES ABD PAIN/N/V AT THIS TIME. IV RW PATENT. NO SIGNS OF ACUTE DISTRESS NOTED. CALL BUTTON WITHIN REACH. SAFETY PRECAUTIONS IN PLACE. WILL CONTINUE TO MONITOR.
[2019-05-25 20:27] VITALS: BP 153/81
--- NOTE | 2019-05-26 01:30 | NUR ---
PT RESTING, BREATHING EVEN AND UNLABORED WITH NO SIGNS OF DISRESS NOTED. CALL BUTTON WITHIN REACH. SAFETY PRECAUTIONS IN PLACE. WILL CONTINUE TO MONITOR.
--- NOTE | 2019-05-26 03:49 | NUR ---
ROUNDS MADE. PT RESTING, BREATHING EVEN AND UNLABORED WITH NO SIGNS OF DISTRESS NOTED. CALL BUTTON WITHIN REACH. SAFETY PRECAUTIONS IN PLACE. WILL CONTINUE TO MONITOR.
--- NOTE | 2019-05-26 05:05 | NUR ---
PT SLEPT MOST OF THE NIGHT WITH NO SIGNS OF DISTRESS NOTED. BREATHING EVEN AND UNLABORED. IV PATENT, SL. MEDICATED PER EMAR. PT AMBULATORY WITH BRP. PT DID NOT HAVE A BM. NO SIGNS OF ACUTE DISTRESS NOTED. CALL BUTTON WITHIN REACH. SAFETY PRECAUTIONS IN PLACE. WILL CONTINUE TO MONITOR AND ENDORSE CARE TO DAY SHIFT RN.
[2019-05-26 05:34] VITALS: BP 150/72
[2019-05-26 06:51] LABS: ALKALINE PHOSPHATASE 49 U/L (46-116); ALT/SGPT 7 U/L (14-59); AST/SGOT 11 U/L (15-37); BILIRUBIN TOTAL 0.33 mg/dL (0.20-1.00); CALCIUM 8.6 mg/dL (8.5-10.1); CARBON DIOXIDE 18.7 mmol/L (21-32); CHLORIDE SERUM 109 mmol/L (98-107); CREATININE SERUM 1.2 mg/dL (0.6-1.0); GLUCOSE SERUM 137 mg/dL (74-106); MAGNESIUM 2.1 mg/dL (1.8-2.4); POTASSIUM SERUM 3.8 mmol/L (3.5-5.1); SODIUM SERUM 143 mmol/L (136-145); TOTAL PROTEIN, SERUM 6.8 g/dL (6.4-8.2)
[2019-05-26 07:09] LABS: PLATELET COUNT 365 x10^3mcL (130-400)
[2019-05-26 07:14] LABS: BASOPHIL % 0 % (0-2); RED CELL DISTRIBUTION WIDTH 25.4 % (11.5-14.5)
[2019-05-26 07:18] LABS: rbc morphology (normal/abnorm) ABNORMAL (NORMAL)
--- NOTE | 2019-05-26 07:29 | NUR ---
PT BACK IN BED. NO SIGNS OF DISTRESS NOTED. ENDORSED CARE TO DAY SHIFT RN. ALL QUESTIONS ADDRESSED.
[2019-05-26 07:39] LABS: ALBUMIN 2.4 g/dL (3.4-5.0)
--- NOTE | 2019-05-26 08:00 | NUR ---
GAVE NORCO FOR COMPLAINTS OF PAIN. PATIENT OOB AND TOELRATED WELL. LUNGS ARE DIMINISHED BUT CLEAR. SHE HAS ACTIVE BOWEL SOUNDS AND DENIES ANY BLEEDING OR PAIN TO THE ABDOMEN AT THIS TIME. PULSES PALPABLE AND PATIEN TAHS BEEN OOB AND AMBULATIONG THE HALLWAY. FAMILY ARRIVED AND IS GIVING TE PATIEN THOT TEA AND FOOD FROM HOME. WILL CONTINUE TO MONITOR INDICATED. PATIENT IS HOPING TO GO HOME. NO ORDERS YET NOTED.
[2019-05-26 09:31] VITALS: BP 145/73
[2019-05-26 12:59] VITALS: BP 136/62
--- NOTE | 2019-05-26 13:01 | NUR ---
SEEN BY DR GOLDEN AND ORDER FOR DISCHARGE RECEIVED. GAVE THE LAST SOLUMEDROL AND HS ORAL MEDICATION AND WILL DO THE DISCHARGE INDICATED. NENA FITZPATRICK WANTS TO GO HOME THE SPOKE WITH THE DAUGHTER SHE HAD REQUESTED EXPLAINING THE PLAN OF CARE AND TO FOLLOW UP WITH PRIMARY FOR THIS CHRONIC CONDITION INDICATED.
[2019-05-26 13:21] VITALS: BP 136/62
--- NOTE | 2019-05-26 14:42 | NUR ---
CALLED THE DAUGHTER AND SHE IS RETURNING SHORTLY TO [employer] TEACHER THE PATIENT FOR HOME.
== END 2019-05-26 15:00 | disposition home or self-care (01) | DRG 872 ==
LOC: ED 09:32 → DU 12:32
PROVIDERS: Emergency Medicine; Internal Medicine Pulmonary Disease; ADMIT Internal Medicine Pulmonary Disease
DX: A41.9 Sepsis, unspecified organism (principal); K52.9 Noninfective gastroenteritis and colitis, unspecified; E86.0 Dehydration; G62.9 Polyneuropathy, unspecified; I10 Essential (primary) hypertension; E78.5 Hyperlipidemia, unspecified; Z68.22 Body mass index [BMI] 22.0-22.9, adult
CPT/HCPCS: 87046; 87046-59; G0378; J0696; J1940; J1956; J2270; J2920; J3490; J7030; J7060

== ENCOUNTER 2019-09-13 17:31 | Emergency (ER) | payer OTHER, MEDICAID ==
[~2019-09-13] VITALS: Ht 149.9 cm; Wt 57.6 kg
[~2019-09-13 17:31] MED LIST changes: +NEU300 PO
[2019-09-13 17:39] VITALS: Ht 149.9 cm; Wt 57.6 kg
[2019-09-13 18:39] LABS: PLATELET COUNT 359 x10^3mcL (130-400)
[2019-09-13 18:40] LABS: RED CELL DISTRIBUTION WIDTH 16.6 % (11.5-14.5)
[2019-09-13 18:45] LABS: CALCIUM 8.9 mg/dL (8.5-10.1); CARBON DIOXIDE 22.9 mmol/L (21-32); CHLORIDE SERUM 107 mmol/L (98-107); CREATININE SERUM 1.2 mg/dL (0.6-1.0); GLUCOSE SERUM 122 mg/dL (74-106); POTASSIUM SERUM 4.6 mmol/L (3.5-5.1); SODIUM SERUM 140 mmol/L (136-145)
[2019-09-13 18:49] LABS: ALBUMIN 3.4 g/dL (3.4-5.0); ALKALINE PHOSPHATASE 57 U/L (46-116); ALT/SGPT 11 U/L (14-59); AST/SGOT 29 U/L (15-37); BILIRUBIN TOTAL 0.3 mg/dL (0.20-1.00); TOTAL PROTEIN, SERUM 8.2 g/dL (6.4-8.2)
[2019-09-13 19:50] VITALS: BP 168/75
== END 2019-09-13 19:50 | disposition home or self-care (01) ==
LOC: ED 17:31
PROVIDERS: Emergency Medicine
DX: I10 Essential (primary) hypertension (principal); R53.1 Weakness; E78.00 Pure hypercholesterolemia, unspecified; Z98.890 Other specified postprocedural states
CPT/HCPCS: 36415

== ENCOUNTER 2020-01-12 10:04 | Inpatient (IN) | payer OTHER, MEDICAID ==
[~2020-01-12] VITALS: Ht 157.5 cm; Wt 55.9 kg
[2020-01-12 11:13] LABS: BASOPHIL % 0.9 % (0-2); PLATELET COUNT 359 x10^3mcL (130-400)
[2020-01-12 11:15] LABS: RED CELL DISTRIBUTION WIDTH 18.8 % (11.5-14.5)
[2020-01-12 11:44] LABS: CALCIUM 9.2 mg/dL (8.5-10.1); CARBON DIOXIDE 24.5 mmol/L (21-32); CHLORIDE SERUM 109 mmol/L (98-107); CREATININE SERUM 1.1 mg/dL (0.6-1.0); GLUCOSE SERUM 86 mg/dL (74-106); POTASSIUM SERUM 3.9 mmol/L (3.5-5.1); SODIUM SERUM 141 mmol/L (136-145)
[2020-01-12 11:48] LABS: ALKALINE PHOSPHATASE 63 U/L (46-116); ALT/SGPT 17 U/L (14-59); AST/SGOT 27 U/L (15-37); BILIRUBIN TOTAL 0.22 mg/dL (0.20-1.00); LIPASE 71 IU/L (73-393); TOTAL PROTEIN, SERUM 7.8 g/dL (6.4-8.2)
[2020-01-12 11:50] LABS: ALBUMIN 3.1 g/dL (3.4-5.0)
[2020-01-12 16:00] VITALS: BP 158/65
[2020-01-12 20:21] VITALS: BP 159/65
[2020-01-13 05:43] VITALS: BP 128/65
[2020-01-13 06:19] LABS: BASOPHIL % 0.5 % (0-2); PLATELET COUNT 305 x10^3mcL (130-400)
[2020-01-13 06:26] LABS: RED CELL DISTRIBUTION WIDTH 19.5 % (11.5-14.5)
[2020-01-13 07:08] LABS: CALCIUM 8.5 mg/dL (8.5-10.1); CARBON DIOXIDE 23.2 mmol/L (21-32); CHLORIDE SERUM 110 mmol/L (98-107); CREATININE SERUM 1.2 mg/dL (0.6-1.0); GLUCOSE SERUM 75 mg/dL (74-106); POTASSIUM SERUM 3.6 mmol/L (3.5-5.1); SODIUM SERUM 144 mmol/L (136-145)
[2020-01-13 09:32] VITALS: BP 160/63
[2020-01-13 12:30] VITALS: BP 153/66
[2020-01-13] MEDS ORDERED: NEURONTIN400 MG PO (14:33)
[2020-01-13] MEDS ORDERED: ENALAPRIL MALEAT5 MG PO (14:34)
[2020-01-13] MEDS ORDERED: MELATONIN3 M4 PO (14:34)
[2020-01-13 16:26] VITALS: BP 155/71
[2020-01-13 20:35] VITALS: BP 160/73
[2020-01-14 05:52] VITALS: BP 138/55
[2020-01-14 06:34] LABS: BASOPHIL % 0.7 % (0-2); PLATELET COUNT 302 x10^3mcL (130-400)
[2020-01-14 06:46] LABS: CALCIUM 8.5 mg/dL (8.5-10.1); CARBON DIOXIDE 22.8 mmol/L (21-32); CHLORIDE SERUM 110 mmol/L (98-107); CREATININE SERUM 1.2 mg/dL (0.6-1.0); GLUCOSE SERUM 79 mg/dL (74-106); POTASSIUM SERUM 3.5 mmol/L (3.5-5.1); SODIUM SERUM 144 mmol/L (136-145)
[2020-01-14 07:03] LABS: RED CELL DISTRIBUTION WIDTH 19.4 % (11.5-14.5)
[2020-01-14 08:50] VITALS: BP 159/58
[2020-01-14 12:43] VITALS: BP 145/53
[2020-01-14 13:22] VITALS: BP 145/53
== END 2020-01-14 16:56 | disposition home or self-care (01) | DRG 392 ==
LOC: ED 10:04 → MU 15:00
PROVIDERS: Emergency Medicine; ADMIT Internal Medicine
DX: K52.9 Noninfective gastroenteritis and colitis, unspecified (principal); I11.0 Hypertensive heart disease with heart failure; I50.9 Heart failure, unspecified; E78.5 Hyperlipidemia, unspecified; Z96.641 Presence of right artificial hip joint; E78.00 Pure hypercholesterolemia, unspecified
CPT/HCPCS: 87046; 87046-59; G0378; J2543; J7030; Q0092